=== PATIENT | female | born 1965 | race African-American/Black ===

== ENCOUNTER 2016-10-03 09:56 | Inpatient (IN) | payer OTHER ==
[2016-10-03 12:11] VITALS: BMI 22.1
--- NOTE | 2016-10-03 12:52 | HP ---
Admission [facility] Chief Complaint: i a m here for rehab from alcohol,cocaine and xanax Allergies/Adverse Reactions: Allergies Allergy/AdvReac Type Severity Reaction Status Date / Time No Known Allergies Allergy Verified 10/03/16 12:44 History of Present Illness: this 51 years old female with alcohol,cocaine ,xanax dependence here for rehab last detox [facility] 09/26/16 to 10/01/16 blindness of right eye from glaucoma 2 years type 2 dm htn hiv longest period of sobriety 11 months migraine headache Exam Limitations: No Limitations - Ebola screening Have you traveled outside of the country in the last 21 days: No Have you had contact with anyone from an Ebola affected area: No Have you been sick,other than usual withdrawal symptoms: No - Review of Systems Constitutional: No Symptoms Reported, Other (migraine headache) EENT: reports: No Symptoms Reported, Other (blindness of righ teye glaucoma) Respiratory: reports: No Symptoms reported Cardiac: reports: No Symptoms Reported GI: reports: No Symptoms Reported : reports: No Symptoms Reported Musculoskeletal: reports: No Symptoms Reported Integumentary: reports: No Symptoms Reported Neuro: reports: Headache Endocrine: reports: No Symptoms Reported Hematology: reports: No Symptoms Reported Psychiatric: reports: No Sypmtoms Reported, Mood/Affect Appropiate, Orientated x3 Patient History - Patient Medical History Hx Anemia: No Hx Asthma: No Hx Chronic Obstructive Pulmonary Disease (COPD): No Hx Cancer: No Hx Cardiac Disorders: No Hx Congestive Heart Failure: No Hx Hypertension: No Hx Hypercholesterolemia: No Hx Pacemaker: No HX Cerebrovascular Accident: No Hx Seizures: No Hx Dementia: No Hx Diabetes: No Hx Gastrointestinal Disorders: No Hx Liver Disease: No Hx Genitourinary Disorders: No Hx Sexually Transmitted Disorders: No Hx Renal Disease (ESRD): No Hx Thyroid Disease: No (since 1981) Hx Human Immunodeficiency Virus (HIV): Yes Hx Hepatitis C: No Hx Depression: Yes (no med) Hx Suicide Attempt: No Hx Bipolar Disorder: No Hx Schizophrenia: No Other Medical History: no suicidal,no homicidal - Patient Surgical History Past Surgical History: No - PPD History Previous Implant?: Yes Documented Results: Positive w/o proof Implanted On Prior R Admission?: No - Reproductive History Patient is a Female of Child Bearing Age (11 -55 yrs old): Yes Last Menstrual Period: 10/18/11 Patient : No - Smoking Cessation Smoking history: Never smoked Hx Chewing Tobacco Use: No - Substance & Tx. History Hx Alcohol Use: Yes Hx Substance Use: Yes Substance Use Type: Alcohol, Cocaine, Tranquilizers Hx Substance Use Treatment: Yes ([facility] 09/26/16 to 10/01/16) - Substances Abused Alcohol Route: Oral Frequency: Daily Amount used: 1pint of bacardi,vodka/2 of 22 ozs Age of first use: 15 Date of Last Use: 10/02/16 Cocaine Route: Smoking Frequency: Daily Amount used: 500$ Age of first use: 15 Date of Last Use: 10/02/16 Alprazolam (Xanax) Route: Oral Frequency: 3-6 times per week Amount used: 6 mgs Age of first use: 15 Date of Last Use: 10/02/16 Family Disease History - Family Disease History Family History: Denies Admission Physical Exam [facility] - Vital Signs Vital Signs: Vital Signs - 24 hr 10/03/16 11:59 Temperature 98 F Pulse Rate 88 Respiratory 20 Rate Blood Pressure 116/71 - Physical General Appearance: Yes: Within Normal Limits, Other (headache) HEENTM: Yes: Within Normal Limits, Hearing grossly Normal, Normal ENT Inspection , Other (blindness of right eye from glaucoma) Respiratory: Yes: Lungs Clear, Normal Breath Sounds, No Respiratory Distress Neck: Yes: Within Normal Limits, Supple, Trachea in good position Breast: Yes: Breast Exam Deferred Cardiology: Yes: Within Normal Limits, Regular Rhythm, Regular Rate, S1, S2 Abdominal: Yes: Within Normal Limits, Normal Bowel Sounds, Non Tender, Flat, Soft Genitourinary: Yes: Within Normal Limits Back: Yes: Within Normal Limits Musculoskeletal: Yes: Within Normal Limits Extremities: Yes: Within Normal Limits Neurological: Yes: field adjuster II-XII NML intact, Fully Oriented, Alert, Motor Strength 5/5 Integumentary: Yes: Within Normal Limits, Other (secod degree burn of right thumb and index 1 week ago) Lymphatic: Yes: Within Normal Limits - Diagnostic (1) Alcohol dependence Current Visit: No Status: Active (2) Cocaine dependence Current Visit: No Status: Active (3) Uncomplicated sedative, hypnotic or anxiolytic withdrawal Current Visit: Yes Status: Acute (4) HIV (human immunodeficiency virus infection) Current Visit: Yes Status: Acute (5) Positive PPD Current Visit: Yes Status: Acute (6) Blindness of right eye Current Visit: Yes Status: Acute (7) DM2 (diabetes mellitus, type 2) Current Visit: Yes Status: Acute (8) Hypertension Current Visit: Yes Status: Acute (9) Burn of finger and thumb, second degree Current Visit: Yes Status: Acute Cleared for Admission S - Detox or Rehab Claeared for Rehab Admission: Yes [facility] Breath Alcohol Content Breath Alcohol Content: 0 Urine Pregancy Test - Result Urine Test Results: Negative- NO Line Present Urine Drug Screen - Results Drug Screen Negative: No Urine Drug Screen Results: BEN-Cocaine, BZO-Benzodiazepines
[2016-10-03] MEDS ORDERED: LOPERAMIDE HCL 2 MG CAPSULE PO PRN (13:11)
[2016-10-03] MEDS ORDERED: IBUPROFEN 400 MG TABLET (FP) PO PRN (13:11)
[2016-10-03] MEDS ORDERED: MENTHOL/PHENOL 1 EACH UD MM PRN (13:11)
[2016-10-03] MEDS ORDERED: MAGNESIUM CITRATE 300 ML BOTTLE PO PRN (13:11)
[2016-10-03] MEDS ORDERED: MAGNESIUM HYDROX 2400MG/30ML ORAL SUSPENSION 30 ML CUP PO PRN (13:11)
[2016-10-03] MEDS ORDERED: guaiFENesin/D-METHORPHAN HB 10 ML UNIT-DOSE CUPS PO PRN (13:11)
[2016-10-03] MEDS ORDERED: MAG HYDROX/AL HYDROX/SIMETH 30 ML UNIT-DOSE CUP PO PRN (13:11)
[2016-10-03] MEDS: ACETAMINOPHEN 325 MG TABLET (FP) PO PRN ×2 (14:15→22:03)
--- NOTE | 2016-10-03 14:23 | HP ---
Psychiatrist Admission - Data Date of interview: 10/03/16 Admission source: [facility] Identifying data: This is the first admission to [address] [place] [address] for this 51 years single AA old female mother of 7 grown children ,resides in [facility] supportive Housing,supported by [facility]. Medical History: Significant for HIV+,HTN,DM,Blindness of R eye. Psychiatric History: First contact with psychiatrist was in her early 20 due to anxiety,depressed mood.She was admitted to [facility] after her first psychotic episode and dx with Bipolar disorder.She reports 2 more psychiatric hospitalizations.She sees psychiatrist at [facility] clinic in the [place] .Current medications:Seroquel 50 mg po hs and Vistaril 50 mg po prn for anxiety. Physical/Sexual Abuse/Trauma History: denies Vital Signs: Vital Signs - 24 hr 10/03/16 11:59 Temperature 98 F Pulse Rate 88 Respiratory 20 Rate Blood Pressure 116/71 Allergies/Adverse Reactions: Allergies Allergy/AdvReac Type Severity Reaction Status Date / Time No Known Allergies Allergy Verified 10/03/16 12:44 Date of last physical exam: 10/03/16 Concur with the findings of this exam: Yes - Substance Abuse/Tx History Hx Alcohol Use: Yes (reports drinking since 15 yo,vodka/2 of 22 oz beer) Hx Substance Use: Yes (cocaine since 15 yo,$500 daily,Xanax since 15 yo ,6 mg daily) Substance Use Type: Alcohol, Cocaine, Tranquilizers Hx Substance Use Treatment: Yes (completed [facility] in 2003,then [facility],then [facility] 2015) - Admission Criteria Previous failed treatment: Yes Poor recovery environment: Yes Comorbidities: Yes Lacks judgement: Yes Mental Status Exam - Mental Status Exam Alert and Oriented to: Time, Place, Person Cognitive Function: Grossly Intact Patient Appearance: Unkempt Mood: Sad, Anxious Affect: Labile Patient Behavior: Restless, Distractible, Cooperative Speech Pattern: Clear Voice Loudness: Normal Thought Process: Goal Oriented Thought Disorder: Not Present Hallucinations: Denies Suicidal Ideation: Denies Homicidal Ideation: Denies Insight/Judgement: Fair Sleep: Difficulty falling asleep Appetite: Weight loss Muscle strength/Tone: Normal Gait/Station: Normal Psychiatric Findings - Problem List ([place] 1, 2,3) (1) Blindness of right eye Current Visit: Yes Status: Chronic (2) DM2 (diabetes mellitus, type 2) Current Visit: Yes Status: Chronic (3) HIV (human immunodeficiency virus infection) Current Visit: Yes Status: Chronic (4) Hypertension Current Visit: Yes Status: Chronic (5) Positive PPD Current Visit: Yes Status: Chronic (6) Alcohol dependence Current Visit: Yes Status: Chronic (7) Bipolar II disorder Current Visit: Yes Status: Chronic - Initial Treatment Plan Initial Treatment Plan: Restart Seroquel 50 mg po hs,start Neurontin 300 mg po tid..Will moniitor progress.
[2016-10-03] MEDS: SILVER SULFADIAZINE 1% TOP CREAM 50 GM JAR TP SCH ×2 (15:38→22:04)
[2016-10-03 19:45] LABS: URINE APPEARANCE CLEAR; URINE BILIRUBIN NEGATIVE (NEGATIVE); URINE BLOOD NEGATIVE (NEGATIVE); URINE COLOR YELLOW; URINE GLUCOSE (UA) NEGATIVE (NEGATIVE); URINE KETONE TRACE (NEGATIVE); URINE LEUK ESTERASE NEGATIVE (NEGATIVE); URINE NITRITE NEGATIVE (NEGATIVE); URINE UROBILINOGEN NEGATIVE E.U./dl (0.2-1.0)
[2016-10-03 19:52] LABS: URINE PROTEIN 1+ (NEGATIVE)
[2016-10-03 19:54] LABS: URINE MUCUS MANY
[2016-10-03] MEDS: THIAMINE HCL 100 MG TABLET (FP) PO SCH (22:02)
[2016-10-04] MEDS: metFORMIN HCL 500 MG TABLET (FP) PO SCH (06:44)
[2016-10-04] MEDS ORDERED: PT OWN MED DRAWER 7, Y5N ONE ×3 (08:37→22:06)
[2016-10-04 09:41] LABS: MCH 30.7 pg (25.7-33.7); MCHC 33.1 g/dl (32.0-36.0); MEAN CELL VOLUME 92.9 fl (80-96); MEAN PLT VOLUME 9.3 fl (7.5-11.1); PLATELET COUNT 190 K/MM3 (134-434); RDW 13.2 % (11.6-15.6)
[2016-10-04 09:56] LABS: ALBUMIN 3.4 g/dl (3.4-5.0); ANION GAP 10 (8-16); CALCIUM 8.8 mg/dL (8.5-10.1); CO2 24 mmol/L (21-32); GLUCOSE,RANDOM 258 mg/dL (74-106)
[2016-10-04] MEDS: cloNIDine HCL 0.1 MG TABLET PO SCH (09:57)
[2016-10-04] MEDS: PRENATAL VITAMINS W/ FOLIC ACID TABLET (FP) PO SCH (09:57)
[2016-10-04] MEDS: SILVER SULFADIAZINE 1% TOP CREAM 50 GM JAR TP SCH ×2 (09:58→22:00)
[2016-10-04 10:00] LABS: ALK PHOS 71 U/L (45-117); BILIRUBIN,TOTAL 1.1 mg/dL (0.2-1.0); CREATININE 0.9 mg/dL (0.55-1.02); SGOT/AST 39 U/L (15-37); SGPT/ALT 49 U/L (12-78); TOT PROT 5.8 g/dl (6.4-8.2)
[2016-10-04 13:04] LABS: SICKLE CELL SCREEN NEGATIVE (NEGATIVE)
--- NOTE | 2016-10-04 13:10 | EKG ---
Test Reason : Blood Pressure : / mmHG Vent. Rate : 072 BPM Atrial Rate : 072 BPM P-R Int : 122 ms QRS Dur : 094 ms QT Int : 396 ms P-R-T Axes : 078 036 049 degrees QTc Int : 433 ms NORMAL SINUS RHYTHM WITH SINUS ARRHYTHMIA MINIMAL VOLTAGE CRITERIA FOR LVH, MAY BE NORMAL VARIANT BORDERLINE ECG NO PREVIOUS ECGS AVAILABLE Confirmed by SAMY OTTO MD ([id number]) on 10/04/2016 1:10:20 PM Referred By: Confirmed By:SAMY OTTO MD
[2016-10-04] MEDS: THIAMINE HCL 100 MG TABLET (FP) PO SCH (21:59)
[2016-10-05] MEDS: metFORMIN HCL 500 MG TABLET (FP) PO SCH (07:58)
[2016-10-05] MEDS: PRENATAL VITAMINS W/ FOLIC ACID TABLET (FP) PO SCH (11:19)
[2016-10-05] MEDS: cloNIDine HCL 0.1 MG TABLET PO SCH (11:19)
[2016-10-05] MEDS: SILVER SULFADIAZINE 1% TOP CREAM 50 GM JAR TP SCH ×2 (11:20→22:02)
[2016-10-05] MEDS: GABAPENTIN 300 MG CAPSULE (FP) PO SCH ×2 (15:40→22:01)
[2016-10-05] MEDS: THIAMINE HCL 100 MG TABLET (FP) PO SCH (22:01)
[2016-10-05] MEDS: diphenhydrAMINE HCL 50 MG CAPSULE PO PRN (22:01)
[2016-10-05] MEDS: QUEtiapine FUMARATE 50 MG TABLET PO SCH (22:01)
[2016-10-05] MEDS ORDERED: PT OWN MED DRAWER 7, Y5N ONE (22:04)
[2016-10-06] MEDS: metFORMIN HCL 500 MG TABLET (FP) PO SCH (07:07)
[2016-10-06] MEDS: GABAPENTIN 300 MG CAPSULE (FP) PO SCH ×3 (07:07→21:48)
[2016-10-06] MEDS: PRENATAL VITAMINS W/ FOLIC ACID TABLET (FP) PO SCH (11:03)
[2016-10-06] MEDS: SILVER SULFADIAZINE 1% TOP CREAM 50 GM JAR TP SCH ×2 (11:04→21:49)
[2016-10-06] MEDS: cloNIDine HCL 0.1 MG TABLET PO SCH (11:04)
[2016-10-06] MEDS: hydrOXYzine PAMOATE 50 MG CAPSULE (FP) PO PRN (11:05)
[2016-10-06] MEDS: THIAMINE HCL 100 MG TABLET (FP) PO SCH (21:48)
[2016-10-06] MEDS: QUEtiapine FUMARATE 50 MG TABLET PO SCH (21:48)
[2016-10-07] MEDS: metFORMIN HCL 500 MG TABLET (FP) PO SCH (07:14)
[2016-10-07] MEDS: GABAPENTIN 300 MG CAPSULE (FP) PO SCH ×3 (07:14→21:59)
[2016-10-07] MEDS: cloNIDine HCL 0.1 MG TABLET PO SCH (10:31)
[2016-10-07] MEDS: PRENATAL VITAMINS W/ FOLIC ACID TABLET (FP) PO SCH (10:32)
[2016-10-07] MEDS: SILVER SULFADIAZINE 1% TOP CREAM 50 GM JAR TP SCH ×2 (10:32→21:59)
[2016-10-07] MEDS: hydrOXYzine PAMOATE 50 MG CAPSULE (FP) PO PRN (13:09)
[2016-10-07] MEDS: QUEtiapine FUMARATE 50 MG TABLET PO SCH (21:59)
[2016-10-07] MEDS: THIAMINE HCL 100 MG TABLET (FP) PO SCH (21:59)
[2016-10-08] MEDS: GABAPENTIN 300 MG CAPSULE (FP) PO SCH ×3 (06:48→22:12)
[2016-10-08] MEDS: metFORMIN HCL 500 MG TABLET (FP) PO SCH (06:48)
[2016-10-08] MEDS ORDERED: PT OWN MED DRAWER 7, Y5N ONE (08:31)
[2016-10-08] MEDS: cloNIDine HCL 0.1 MG TABLET PO SCH (10:33)
[2016-10-08] MEDS: PRENATAL VITAMINS W/ FOLIC ACID TABLET (FP) PO SCH (10:33)
[2016-10-08] MEDS: SILVER SULFADIAZINE 1% TOP CREAM 50 GM JAR TP SCH ×2 (10:33→22:13)
[2016-10-08] MEDS: ACETAMINOPHEN 325 MG TABLET (FP) PO PRN (18:04)
[2016-10-08] MEDS: QUEtiapine FUMARATE 50 MG TABLET PO SCH (22:12)
[2016-10-08] MEDS: THIAMINE HCL 100 MG TABLET (FP) PO SCH (22:12)
[2016-10-09] MEDS: metFORMIN HCL 500 MG TABLET (FP) PO SCH (06:33)
[2016-10-09] MEDS: GABAPENTIN 300 MG CAPSULE (FP) PO SCH ×3 (06:33→22:16)
[2016-10-09] MEDS: PRENATAL VITAMINS W/ FOLIC ACID TABLET (FP) PO SCH (10:30)
[2016-10-09] MEDS: SILVER SULFADIAZINE 1% TOP CREAM 50 GM JAR TP SCH ×2 (10:31→22:37)
[2016-10-09] MEDS: cloNIDine HCL 0.1 MG TABLET PO SCH (10:32)
[2016-10-09] MEDS ORDERED: PT OWN MED DRAWER 7, Y5N ONE (17:53)
[2016-10-09] MEDS: THIAMINE HCL 100 MG TABLET (FP) PO SCH (22:16)
[2016-10-09] MEDS: diphenhydrAMINE HCL 50 MG CAPSULE PO PRN (22:16)
[2016-10-09] MEDS: QUEtiapine FUMARATE 50 MG TABLET PO SCH (22:16)
[2016-10-10] MEDS: GABAPENTIN 300 MG CAPSULE (FP) PO SCH ×3 (06:56→21:50)
[2016-10-10] MEDS: metFORMIN HCL 500 MG TABLET (FP) PO SCH (06:56)
[2016-10-10] MEDS ORDERED: PT OWN MED DRAWER 7, Y5N ONE (08:54)
[2016-10-10] MEDS: SILVER SULFADIAZINE 1% TOP CREAM 50 GM JAR TP SCH ×2 (10:41→21:50)
[2016-10-10] MEDS: cloNIDine HCL 0.1 MG TABLET PO SCH (10:41)
[2016-10-10] MEDS: PRENATAL VITAMINS W/ FOLIC ACID TABLET (FP) PO SCH (10:41)
--- NOTE | 2016-10-10 14:17 | PN ---
Psychiatric Progress Note Vital Signs: Vital Signs Period Temp Pulse Resp BP Sys/Yin Pulse Ox Last 24 Hr 98.3 F 72-77 16-18 100-131/63-71 Date of Session: 10/10/16 Chief Complaint:: "My sleep is still a problem,i need something to help me." HPI: Alcohol dependence comorbid with Bipolar II disorder. ROS: HIV+,DM,Blindness of R eye. Current Medications: Active Medications Generic Name Dose Route Start Last Admin Trade Name Freq PRN Reason Stop Dose Admin Acetaminophen 650 mg 10/03/16 13:11 10/08/16 18:04 Tylenol - PO 650 mg Q4H PRN Administration PAIN Al Hydroxide/Mg Hydroxide 30 ml 10/03/16 13:11 Mylanta Oral Suspension - PO Q6H PRN DYSPEPSIA Clonidine 0.1 mg 10/04/16 10:00 10/10/16 10:41 Catapres - PO Not Given DAILY MIKE Diphenhydramine HCl 50 mg 10/03/16 13:11 10/09/16 22:16 Benadryl - PO 50 mg HSMR1 PRN Administration INSOMNIA Eucalyptus/Menthol/Phenol/Sorbitol 1 each 10/03/16 13:11 Cepastat Lozenge - MM Q4H PRN SORE THROAT Gabapentin 300 mg 10/05/16 15:30 10/10/16 13:03 Neurontin - PO Not Given TID MIKE Guaifenesin 10 ml 10/03/16 13:11 Robitussin Dm - PO Q6H PRN COUGH Hydroxyzine Pamoate 50 mg 10/03/16 13:11 10/07/16 13:09 Vistaril - PO 50 mg Q4H PRN Administration AGITATION Ibuprofen 400 mg 10/03/16 13:11 Motrin - PO Q6H PRN SEVERE PAIN Loperamide HCl 4 mg 10/03/16 13:11 Imodium - PO Q6H PRN DIARRHEA Magnesium Citrate 300 ml 10/03/16 13:11 Citroma - PO Q48H PRN CONSTIPATION Magnesium Hydroxide 30 ml 10/03/16 13:11 Milk Of Magnesia - PO DAILY PRN CONSTIPATION Metformin HCl 1,000 mg 10/04/16 07:00 10/10/16 06:56 Glucophage - PO 1,000 mg DAILY@0700 MIKE Administration Multivit/Folic Acid/Iron 1 tab 10/04/16 10:00 10/10/16 10:41 Vitamins (Sjr) - PO 1 tab DAILY MIKE Administration Pseudoephedrine/Triprolidine 1 combo 10/03/16 13:11 Actifed - PO TID PRN NASAL CONGESTION Quetiapine Fumarate 100 mg 10/10/16 22:00 Seroquel - PO HS MIKE Silver Sulfadiazine 1 applic 10/03/16 14:00 10/10/16 10:41 Silvadene - TP 1 applic BID MIKE Administration Thiamine HCl 100 mg 10/03/16 22:00 10/09/16 22:16 Vitamin B1 - PO 100 mg HS MIKE Administration Current Side Effect: No Lab tests ordered: No Lab tests reviewed: Yes Provider note:: Chart was revuewed,patient was evaluated,treatment plan including psychopharmacological intervention has been discussed with the patient.She reports some response to Seroquel 50 mg po hs,states that she was sleeping much better with higher dosage.Properties of Seroquel has been discussed with the patient.Seroquel 50 mg po hs will be adjusted to 100 mg po hs. Supportive therapy provided. Total face to face time:: 30 Mental Status Exam - Mental Status Exam Alert and Oriented to: Time, Place, Person Cognitive Function: Grossly Intact Patient Appearance: Well Groomed Mood: Nervous Affect: Labile Patient Behavior: Restless, Cooperative Speech Pattern: Clear Voice Loudness: Normal Thought Process: Goal Oriented Thought Disorder: Not Present Hallucinations: Denies Suicidal Ideation: Denies Homicidal Ideation: Denies Insight/Judgement: Fair Sleep: Difficulty falling asleep Appetite: Good Muscle strength/Tone: Normal Gait/Station: Normal Psychiatric Treatment Plan - Problem List (1) Blindness of right eye Current Visit: Yes (2) DM2 (diabetes mellitus, type 2) Current Visit: Yes (3) HIV (human immunodeficiency virus infection) Current Visit: Yes (4) Hypertension Current Visit: Yes (5) Positive PPD Current Visit: Yes (6) Alcohol dependence Current Visit: Yes (7) Bipolar II disorder Current Visit: Yes
[2016-10-10] MEDS: P-EPHED 60MG/TRIPROLIDI 2.5MG TABLET PO PRN (14:33)
[2016-10-10] MEDS: THIAMINE HCL 100 MG TABLET (FP) PO SCH (21:50)
[2016-10-10] MEDS: QUEtiapine FUMARATE 100 MG TABLET (FP) PO SCH (21:51)
[2016-10-10] MEDS: diphenhydrAMINE HCL 50 MG CAPSULE PO PRN (21:51)
[2016-10-11] MEDS: GABAPENTIN 300 MG CAPSULE (FP) PO SCH ×3 (06:35→21:55)
[2016-10-11] MEDS: metFORMIN HCL 500 MG TABLET (FP) PO SCH (06:35)
[2016-10-11] MEDS: P-EPHED 60MG/TRIPROLIDI 2.5MG TABLET PO PRN (08:41)
[2016-10-11] MEDS: SILVER SULFADIAZINE 1% TOP CREAM 50 GM JAR TP SCH ×2 (09:49→21:56)
[2016-10-11] MEDS: PRENATAL VITAMINS W/ FOLIC ACID TABLET (FP) PO SCH (09:49)
[2016-10-11] MEDS: cloNIDine HCL 0.1 MG TABLET PO SCH (09:49)
[2016-10-11] MEDS: hydrOXYzine PAMOATE 50 MG CAPSULE (FP) PO PRN (12:21)
[2016-10-11] MEDS: QUEtiapine FUMARATE 100 MG TABLET (FP) PO SCH (21:55)
[2016-10-11] MEDS: THIAMINE HCL 100 MG TABLET (FP) PO SCH (21:55)
[2016-10-11] MEDS: diphenhydrAMINE HCL 50 MG CAPSULE PO PRN (21:56)
[2016-10-12] MEDS: metFORMIN HCL 500 MG TABLET (FP) PO SCH (06:51)
[2016-10-12] MEDS: GABAPENTIN 300 MG CAPSULE (FP) PO SCH (06:51)
[2016-10-12 07:38] VITALS: TEMP 98.3
[2016-10-12] MEDS ORDERED: PT OWN MED DRAWER 7, Y5N ONE (09:01)
[2016-10-12] MEDS: cloNIDine HCL 0.1 MG TABLET PO SCH (09:10)
[2016-10-12] MEDS: PRENATAL VITAMINS W/ FOLIC ACID TABLET (FP) PO SCH (09:10)
[2016-10-12] MEDS: SILVER SULFADIAZINE 1% TOP CREAM 50 GM JAR TP SCH (09:11)
--- NOTE | 2016-10-12 09:49 | PN ---
Psychiatric Progress Note Vital Signs: Vital Signs Period Temp Pulse Resp BP Sys/Yin Pulse Ox Last 24 Hr 98.3 F 63-66 16-18 105-107/64-69 Date of Session: 10/12/16 Chief Complaint:: Discharge visit HPI: Patient addressed Alcohol,Opioid and Cocaine dependence comorbid with Bipolar disorder. ROS: See medical history. Current Medications: Active Medications Generic Name Dose Route Start Last Admin Trade Name Freq PRN Reason Stop Dose Admin Acetaminophen 650 mg 10/03/16 13:11 10/08/16 18:04 Tylenol - PO 650 mg Q4H PRN Administration PAIN Al Hydroxide/Mg Hydroxide 30 ml 10/03/16 13:11 Mylanta Oral Suspension - PO Q6H PRN DYSPEPSIA Clonidine 0.1 mg 10/04/16 10:00 10/12/16 09:10 Catapres - PO 0.1 mg DAILY MIKE Administration Diphenhydramine HCl 50 mg 10/03/16 13:11 10/11/16 21:56 Benadryl - PO 50 mg HSMR1 PRN Administration INSOMNIA Eucalyptus/Menthol/Phenol/Sorbitol 1 each 10/03/16 13:11 Cepastat Lozenge - MM Q4H PRN SORE THROAT Gabapentin 300 mg 10/05/16 15:30 10/12/16 06:51 Neurontin - PO 300 mg TID MIKE Administration Guaifenesin 10 ml 10/03/16 13:11 Robitussin Dm - PO Q6H PRN COUGH Hydroxyzine Pamoate 50 mg 10/03/16 13:11 10/11/16 12:21 Vistaril - PO 50 mg Q4H PRN Administration AGITATION Ibuprofen 400 mg 10/03/16 13:11 10/10/16 14:33 Motrin - PO 400 mg Q6H PRN Administration SEVERE PAIN Loperamide HCl 4 mg 10/03/16 13:11 Imodium - PO Q6H PRN DIARRHEA Magnesium Citrate 300 ml 10/03/16 13:11 Citroma - PO Q48H PRN CONSTIPATION Magnesium Hydroxide 30 ml 10/03/16 13:11 Milk Of Magnesia - PO DAILY PRN CONSTIPATION Metformin HCl 1,000 mg 10/04/16 07:00 10/12/16 06:51 Glucophage - PO 1,000 mg DAILY@0700 MIKE Administration Multivit/Folic Acid/Iron 1 tab 10/04/16 10:00 10/12/16 09:10 Vitamins (Sjr) - PO 1 tab DAILY MIKE Administration Pseudoephedrine/Triprolidine 1 combo 10/03/16 13:11 10/11/16 08:41 Actifed - PO 1 combo TID PRN Administration NASAL CONGESTION Quetiapine Fumarate 100 mg 10/10/16 22:00 10/11/16 21:55 Seroquel - PO 100 mg HS MIKE Administration Silver Sulfadiazine 1 applic 10/03/16 14:00 10/12/16 09:11 Silvadene - TP 1 applic BID MIKE Administration Thiamine HCl 100 mg 10/03/16 22:00 10/11/16 21:55 Vitamin B1 - PO 100 mg HS MIKE Administration Current Side Effect: No Lab tests ordered: No Lab tests reviewed: Yes Provider note:: Chart was revuewed,patient was seen in my office.Patient decided to sign out today since can lose her belongins in [facility].Patient didnt meet her treatment goals and despite our strong recommendations to complete inpatient rehabilitation she wants to continue to address her issues on outpatient basis at [facility] rehab in the [place].Patient will continue current medications as per plan.Scripts for 30 days provided. Therapy provided focusing on relapse prevention including coping skills,support utilization to maintain recovery. Total face to face time:: 30 Mental Status Exam - Mental Status Exam Alert and Oriented to: Time, Place, Person Cognitive Function: Grossly Intact Patient Appearance: Unkempt Mood: Euthymic Affect: Mood Congruent Patient Behavior: Resitive to Care Speech Pattern: Clear Voice Loudness: Normal Thought Process: Goal Oriented Thought Disorder: Not Present Hallucinations: Denies Suicidal Ideation: Denies Homicidal Ideation: Denies Insight/Judgement: Fair Sleep: Fair Appetite: Fair Muscle strength/Tone: Normal Gait/Station: Normal
[2016-10-12 10:27] VITALS: BP 108/70; PULSE 93
== END 2016-10-12 09:52 | disposition home or self-care (01) | DRG 770 ==
LOC: YASAS 09:56 → Y3E 13:33
PROVIDERS: ADMIT Psychiatry & Neurology Psychiatry; ATTEND Psychiatry & Neurology Psychiatry
PROC: HZ42ZZZ Group Counseling for Substance Abuse Treatment, Cognitive-Behavioral (ICD-10-PCS; principal; 2016-10-03)
DX: F10.20 Alcohol dependence, uncomplicated (principal); F13.20 Sedative, hypnotic or anxiolytic dependence, uncomplicated; F14.20 Cocaine dependence, uncomplicated; F31.81 Bipolar II disorder; Z21 Asymptomatic human immunodeficiency virus [HIV] infection status; E11.9 Type 2 diabetes mellitus without complications; H54.41 Blindness, right eye, normal vision left eye; I10 Essential (primary) hypertension; R76.11 Nonspecific reaction to tuberculin skin test without active tuberculosis; Z59.0 Homelessness; T23.2 Burn of second degree of wrist and hand; T31.0 Burns involving less than 10% of body surface; X08.8XXS Exposure to other specified smoke, fire and flames, sequela
CPT/HCPCS: 36415; 71020-TC; 80053; 81003; 81015; 85027; 85660; 86593; 86780; 93005; 93010